=== PATIENT | male | born 1935 | race Caucasian/White ===

== ENCOUNTER 2021-03-21 06:17 | Day surgery (SDC) | payer MEDICARE, OTHER ==
[2021-03-21] MEDS ORDERED: Midazolam 1 MG/ML 2 ML SDV IV ONE ×2 (06:18→07:41)
[2021-03-21] MEDS ORDERED: fentaNYL 100 MCG/2 ML SDV IV ONE ×3 (06:18→07:41)
[2021-03-21] MEDS ORDERED: Dextrose 5%-0.45% NaCl 1,000 ML IV SCH (06:40)
[2021-03-21] MEDS ORDERED: Midazolam 1 MG/ML 2 ML SDV ONE (06:57)
[2021-03-21] MEDS ORDERED: fentaNYL 100 MCG/2 ML SDV ONE (06:57)
--- NOTE | 2021-03-21 10:08 | OR ---
DATE: 03/21/2021 PROCEDURE: Esophagogastroduodenoscopy, NBI, and multiple pinch biopsies. INSTRUMENT USED: [id number]-HQ190 Olympus video panendoscope. PREMEDICATIONS: No oral or topical anesthesia used. Fentanyl 100 mcg intravenous, Versed 1 mg intravenous. Nasal O2 cannula. The procedure was done under pulse oximetry, BP recording, and hot mill tin roller. INDICATION: The patient with long-standing heartburn, and related difficulties, on high-dose PPI. Esophagogastroduodenoscopy is performed for detection of any active erosive lesions, Douglass esophagus and/or malignancy also under consideration, H pylori status to be determined, endoscopic hemostasis therapy if needed. The scope was passed with ease. Adequate visualization of the esophagus was made from proximal to distal areas. No upper esophageal lesions identified. No distal esophageal stricture. No uphill or downhill esophageal varices. No Brook-Coles tear. No evidence of erosive esophagitis by Bulloch criteria. No esophageal polyp or tumor mass identified. Proximally, encroaching pink columnar epithelium was noted at around 38 cm distal to the oral verge, NBI views were obtained. Multiple pinch biopsies, 4 quadrants were taken and sent for any histopathologic evidence of intestinal metaplasia. No proximal gastric varices noted. Gastric fundus examination by retroflexion showed no polypoid lesions. No gastric ulcer, malignant mass, or vascular ectasia identified. Prominent benign-appearing proximal gastric folds were noted. Mild patchy erythema of the gastric antrum was noted. No gastric ulcer, malignant mass, or vascular ectasia identified. Duodenal bulb showed no ulcer. Visualized second part of the duodenum was unremarkable. Multiple pinch biopsies were taken from the gastric antrum and proximal body and sent for PyloriTek test for H pylori and histopathology. No bleeding was noted from any of the visualized areas at the completion of examination. Photographs were taken of the duodenal bulb, gastric antrum, fundus, and distal esophagus. IMPRESSION: Columnar-lined distal esophagus. The patient tolerated the procedure well. [facility] /[id number]
[2021-03-21 10:24] VITALS: BP 136/47; PULSE 71
== END 2021-03-21 10:00 | disposition home or self-care (01) ==
LOC: DL.ENDO 06:17
PROVIDERS: ATTEND Internal Medicine Gastroenterology
DX: K20.90 Esophagitis, unspecified without bleeding (principal); K22.8 Other specified diseases of esophagus; I10 Essential (primary) hypertension; E78.5 Hyperlipidemia, unspecified; E66.09 Other obesity due to excess calories; Z88.0 Allergy status to penicillin; Z85.038 Personal history of other malignant neoplasm of large intestine
CPT/HCPCS: 43239; 87077; J2250; J3010; J7042

== ENCOUNTER 2022-08-08 07:20 | Day surgery (SDC) | payer MEDICARE, OTHER ==
[~2022-08-08 07:20] MED LIST: Apraclonidine 0.5% Ophth Soln 5 ML Bot EYELF ONE; Balanced Salt Solution Ophth Irrig 500 ML Bottle IOCULAR ONE; Chondroitin Sulfate/Hyaluronate Sodium Ophth Inj 0.75 ML Syringe EYELF ONE; Dexamethasone/Neomycin/Polymyxin B Ophth Oint 3.5 GM Tube EYELF ONE; Diclofenac Sodium 0.1% Ophth Soln 5 ML Bottle EYELF ONE; Lidocaine 1% 30 ML SDV ONE; Povidone-Iodine 5% Sterile Ophth Soln 30 ML Bottle EYELF ONE; Proparacaine 0.5% Ophth Soln 15 ML Bottle EYELF ONE; Vancomycin 500 MG SDV EYELF ONE
[2022-08-08] MEDS ORDERED: Midazolam 1 MG/ML 2 ML SDV IV ONE (07:21)
[2022-08-08] MEDS ORDERED: Dexamethasone 4 MG/ML SDV IV ONE (07:21)
[2022-08-08] MEDS ORDERED: Sodium Chloride 0.9% 10 ML Syringe IV ONE (07:21)
[2022-08-08] MEDS ORDERED: Acetaminophen/Codeine 300-30 MG Tab PO PRN (07:30)
[2022-08-08] MEDS ORDERED: Tropicamide 1% Ophth Soln 15 ML Bottle EYELF ONE (07:30)
[2022-08-08] MEDS ORDERED: Proparacaine 0.5% Ophth Soln 15 ML Bottle EYELF ONE ×2 (07:30→08:40)
[2022-08-08] MEDS ORDERED: Povidone-Iodine 5% Sterile Ophth Soln 30 ML Bottle EYELF ONE ×2 (07:30→08:41)
[2022-08-08] MEDS ORDERED: Acetaminophen 325 MG Tab PO PRN (07:30)
[2022-08-08] MEDS ORDERED: Sodium Chloride 0.9% 10 ML Syringe FLUSH PRN (07:30)
[2022-08-08] MEDS ORDERED: Timolol Maleate 0.5% Ophth Soln 5 ML Bottle EYELF ONE (07:30)
[2022-08-08] MEDS ORDERED: Cataract Ophth Solution EYELF ONE (07:30)
[2022-08-08] MEDS ORDERED: Phenylephrine 10% Ophth Soln 5 ML Bot EYELF PRN (07:30)
[2022-08-08] MEDS ORDERED: Ondansetron 4 MG/2 ML SDV IVPUSH PRN (07:30)
[2022-08-08] MEDS ORDERED: Moxifloxacin 0.5% Ophth Soln 3 ML Bottle EYELF ONE (07:30)
[2022-08-08] MEDS ORDERED: Balanced Salt Solution Ophth Irrig 500 ML Bottle IOCULAR ONE (08:41)
[2022-08-08] MEDS ORDERED: Vancomycin 500 MG SDV EYELF ONE (08:41)
[2022-08-08] MEDS ORDERED: Lidocaine 1% 30 ML SDV ONE (08:41)
[2022-08-08] MEDS ORDERED: Dexamethasone/Neomycin/Polymyxin B Ophth Oint 3.5 GM Tube EYELF ONE (08:41)
[2022-08-08] MEDS ORDERED: Diclofenac Sodium 0.1% Ophth Soln 5 ML Bottle EYELF ONE (08:41)
[2022-08-08] MEDS ORDERED: Chondroitin Sulfate/Hyaluronate Sodium Ophth Inj 0.75 ML Syringe EYELF ONE (08:41)
[2022-08-08] MEDS ORDERED: Apraclonidine 0.5% Ophth Soln 5 ML Bot EYELF ONE (08:41)
[2022-08-08] MEDS ORDERED: Dexamethasone 4 MG/ML SDV IOCULAR ONE (08:47)
[2022-08-08 09:50] VITALS: BP 125/61; PULSE 70
== END 2022-08-08 09:48 | disposition home or self-care (01) ==
LOC: DL.SDS 07:20
PROVIDERS: ATTEND Ophthalmology
DX: H25.812 Combined forms of age-related cataract, left eye (principal); I10 Essential (primary) hypertension; E78.5 Hyperlipidemia, unspecified; C61 Malignant neoplasm of prostate; F17.210 Nicotine dependence, cigarettes, uncomplicated; E66.9 Obesity, unspecified; Z88.0 Allergy status to penicillin; Z98.890 Other specified postprocedural states; Z79.899 Other long term (current) drug therapy; Z68.33 Body mass index [BMI] 33.0-33.9, adult
CPT/HCPCS: A9270-GY; J1100; J2250; J3370; J3490

== ENCOUNTER → 2022-09-05 | Day surgery (SDC) | payer MEDICARE, OTHER ==
[~2022-09-05] MED LIST changes: +Acetaminophen 325 MG Tab PO PRN; +Acetaminophen/Codeine 300-30 MG Tab PO PRN; -Apraclonidine 0.5% Ophth Soln 5 ML Bot EYELF ONE; +Apraclonidine 0.5% Ophth Soln 5 ML Bot EYERT ONE; +Cataract Ophth Solution EYERT ONE; -Chondroitin Sulfate/Hyaluronate Sodium Ophth Inj 0.75 ML Syringe EYELF ONE; +Chondroitin Sulfate/Hyaluronate Sodium Ophth Inj 0.75 ML Syringe EYERT ONE; +Dexamethasone 4 MG/ML SDV IV ONE; -Dexamethasone/Neomycin/Polymyxin B Ophth Oint 3.5 GM Tube EYELF ONE; +Dexamethasone/Neomycin/Polymyxin B Ophth Oint 3.5 GM Tube EYERT ONE; -Diclofenac Sodium 0.1% Ophth Soln 5 ML Bottle EYELF ONE; +Diclofenac Sodium 0.1% Ophth Soln 5 ML Bottle EYERT ONE; +Midazolam 1 MG/ML 2 ML SDV IV ONE; +Moxifloxacin 0.5% Ophth Soln 3 ML Bottle EYERT ONE; +Ondansetron 4 MG/2 ML SDV IVPUSH PRN; +Phenylephrine 10% Ophth Soln 5 ML Bot EYERT PRN; -Povidone-Iodine 5% Sterile Ophth Soln 30 ML Bottle EYELF ONE; +Povidone-Iodine 5% Sterile Ophth Soln 30 ML Bottle EYERT ONE; -Proparacaine 0.5% Ophth Soln 15 ML Bottle EYELF ONE; +Proparacaine 0.5% Ophth Soln 15 ML Bottle EYERT ONE; +Sodium Chloride 0.9% 10 ML Syringe FLUSH PRN; +Sodium Chloride 0.9% 10 ML Syringe IV ONE; +Timolol Maleate 0.5% Ophth Soln 5 ML Bottle EYERT ONE; +Tropicamide 1% Ophth Soln 15 ML Bottle EYERT ONE; -Vancomycin 500 MG SDV EYELF ONE; +Vancomycin 500 MG SDV EYERT ONE
[2022-09-05 12:57] VITALS: BP 126/63; PULSE 84
== END | disposition home or self-care (01) ==
LOC: DL.SDS 10:12
PROVIDERS: ATTEND Ophthalmology
DX: H25.811 Combined forms of age-related cataract, right eye (principal); I10 Essential (primary) hypertension; E78.5 Hyperlipidemia, unspecified; C61 Malignant neoplasm of prostate; M19.90 Unspecified osteoarthritis, unspecified site; E66.9 Obesity, unspecified; Z98.890 Other specified postprocedural states; Z87.891 Personal history of nicotine dependence; Z79.899 Other long term (current) drug therapy; Z88.0 Allergy status to penicillin; Z68.33 Body mass index [BMI] 33.0-33.9, adult
CPT/HCPCS: 00142; A9270-GY; J1100; J2250; J3370; J3490; V2632

== ENCOUNTER 2022-11-30 16:21 | Observation (INO) | payer MEDICARE, OTHER ==
[2022-11-30] MEDS ORDERED: Sodium Chloride 0.9% 10 ML Syringe FLUSH PRN (16:23)
[2022-11-30 16:57] LABS: BASOPHILS PERCENT AUTO 0.5 % (0.0-1.0); EOSINOPHILS PERCENT AUTO 0.7 % (1.0-3.0); HEMATOCRIT 41.6 % (40.0-54.0); HEMOGLOBIN 14.2 g/dL (14.0-18.0); LYMPHOCYTES PERCENT AUTO 41.6 % (20.5-50.1); MEAN CORPUSCULAR HEMOGLOBIN 32.5 pg (27.0-34.0); MEAN CORPUSCULAR HGB CONC 34.1 g/dL (33.0-35.0); MEAN CORPUSCULAR VOLUME 95.2 fL (80-100); NEUTROPHILS PERCENT AUTO 49.2 % (42.2-75.2); PLATELET COUNT,PLT 163 10^3/uL (150-450); RED BLOOD CELL COUNT 4.37 10^6/uL (4.6-6.2); WHITE BLOOD CELL COUNT,WBC 6.1 10^3/uL (5.0-10.0)
[2022-11-30] MEDS ORDERED: Sodium Chloride 0.9% 1,000 ML IV ONE (17:09)
[2022-11-30 17:18] LABS: A/G RATIO 1.2; ALANINE AMINOTRANSFERASE,ALT 25 U/L (16-63); ALBUMIN 3.4 g/dL (3.4-5.0); ALKALINE PHOSPHATASE 58 U/L (46-116); ASPARTATE AMNIOTRANSFERASE,AST 18 U/L (15-37); BILIRUBIN TOTAL 0.5 mg/dL (0.2-1.0); BLOOD UREA NITROGEN,BUN 19 mg/dL (7-18); BUN/CREATININE RATIO 14.4 (No establ ref range); C-REACTIVE PROTEIN 0.3 mg/dL (0.0-0.9); CALCIUM 8.5 mg/dL (8.5-10.1); CARBON DIOXIDE,CO2 27 mmol/L (21-32); CHLORIDE,CL 105 mmol/L (98-107); CREATININE 1.32 mg/dL (0.70-1.30); ESTIMATED GFR 53 mL/min (>=60); GLUCOSE RANDOM 106 mg/dL (70-99); PROTEIN TOTAL,TP 6.3 g/dL (6.4-8.2); SODIUM,NA 141 mmol/L (136-145)
[2022-11-30 17:22] LABS: LACTIC ACID 0.7 mmol/L (0.4-2.0)
[2022-11-30] MEDS ORDERED: Magnesium Sulfate/Water 2 GM in Premix Bag 1 BAG IV ONE ×4 (17:22)
[2022-11-30] MEDS ORDERED: Albuterol/Ipratropium 3.0-0.5 MG/3 ML Neb Soln NEB PRN (20:11)
[2022-11-30] MEDS ORDERED: Temazepam 15 MG Cap PO PRN (20:11)
[2022-11-30] MEDS ORDERED: Acetaminophen 325 MG Tab PO PRN (20:11)
[2022-11-30] MEDS ORDERED: Acetaminophen/HYDROcodone 325-5 MG Tab PO PRN (20:11)
[2022-11-30] MEDS ORDERED: Ondansetron 4 MG/2 ML SDV IVPUSH PRN (20:11)
[2022-11-30] MEDS ORDERED: HYDROmorphone 0.5 MG/0.5 ML Syringe IVPUSH PRN (20:11)
[2022-11-30] MEDS ORDERED: Zolpidem 5 MG Tab PO PRN (20:16)
[2022-11-30] MEDS: Famotidine 20 MG Tab PO SCH (20:41)
[2022-11-30 20:50] LABS: APPEARANCE,URINE CLEAR (CLEAR); BILIRUBIN,URINE NEGATIVE (NEGATIVE); COLOR,URINE YELLOW (YELLOW); GLUCOSE,URINE NEGATIVE (NEGATIVE); KETONES,URINE NEGATIVE (NEGATIVE); LEUKOCYTE ESTERASE,URINE NEGATIVE (NEGATIVE); NITRITE,URINE NEGATIVE (NEGATIVE); OCCULT BLOOD,URINE NEGATIVE (NEGATIVE); PH,URINE 5.5 (5.0-9.0); PROTEIN,URINE NEGATIVE (NEGATIVE); UROBILINOGEN,URINE 0.2 mg/dL (0.2-1.0)
[2022-11-30 21:10] LABS: AMORPHOUS SEDIMENT,URINE FEW /HPF (NOT SEEN); BACTERIA,URINE FEW /HPF (0-FEW/HPF); EPITHELIAL CELLS,URINE FEW /HPF (NOT SEEN); MUCUS,URINE FEW /LPF (NOT SEEN); RBC,URINE 0-5 /HPF (0-5); WBC,URINE 0-5 /HPF (0-5/HPF)
[2022-12-01 06:26] LABS: BASOPHILS PERCENT AUTO 0.4 % (0.0-1.0); HEMATOCRIT 41.1 % (40.0-54.0); HEMOGLOBIN 13.7 g/dL (14.0-18.0); LYMPHOCYTES PERCENT AUTO 38.8 % (20.5-50.1); MEAN CORPUSCULAR HGB CONC 33.3 g/dL (33.0-35.0); MONOCYTES PERCENT AUTO 8.4 % (2-8); NEUTROPHILS PERCENT AUTO 51.4 % (42.2-75.2); PLATELET COUNT,PLT 144 10^3/uL (150-450); RED BLOOD CELL COUNT 4.28 10^6/uL (4.6-6.2); WHITE BLOOD CELL COUNT,WBC 4.9 10^3/uL (5.0-10.0)
[2022-12-01 06:46] LABS: ALBUMIN 3.1 g/dL (3.4-5.0); ANION GAP 9.3 mEq/L (7-13); BILIRUBIN TOTAL 0.4 mg/dL (0.2-1.0); CALCIUM 8.2 mg/dL (8.5-10.1); CREATININE 1.25 mg/dL (0.70-1.30); EST CRCL DRUG DOSING (CG) 38.99 mL/min; MAGNESIUM 2.1 mg/dL (1.8-2.4); POTASSIUM,K 4.3 mmol/L (3.5-5.1); PROTEIN TOTAL,TP 5.9 g/dL (6.4-8.2)
[2022-12-01 06:50] LABS: A/G RATIO 1.11
[2022-12-01] MEDS ORDERED: Aspirin 81 MG Tab.Chew PO SCH (08:00)
[2022-12-01] MEDS: Famotidine 20 MG Tab PO SCH (08:14)
[2022-12-01 10:21] VITALS: BP 135/60; PULSE 71
== END 2022-12-01 10:41 | disposition home or self-care (01) ==
LOC: DL.ED 16:21 → DL.MS 18:30
PROVIDERS: ADMIT Internal Medicine; ATTEND Internal Medicine
DX: G45.9 Transient cerebral ischemic attack, unspecified (principal); E83.42 Hypomagnesemia; I12.9 Hypertensive chronic kidney disease with stage 1 through stage 4 chronic kidney disease, or unspecified chronic kidney disease; N18.9 Chronic kidney disease, unspecified; E78.00 Pure hypercholesterolemia, unspecified; K21.9 Gastro-esophageal reflux disease without esophagitis; M19.90 Unspecified osteoarthritis, unspecified site; C61 Malignant neoplasm of prostate; J01.00 Acute maxillary sinusitis, unspecified; E66.9 Obesity, unspecified; Z68.32 Body mass index [BMI] 32.0-32.9, adult; Z79.899 Other long term (current) drug therapy; Z79.82 Long term (current) use of aspirin; Z88.0 Allergy status to penicillin; Z98.890 Other specified postprocedural states
CPT/HCPCS: 36415; 70450; 80053; 80061; 81001; 83605; 83735; 84484; 85025; 86140; 93005; 93010; 96361; 96365; 96366; 99223; 99238; 99284; 99285-25; A9270-GY; G0378; J3475; J3490; J7030

== ENCOUNTER 2023-09-20 06:12 | Day surgery (SDC) | payer MEDICARE, OTHER ==
[2023-09-20] MEDS ORDERED: fentaNYL 100 MCG/2 ML SDV IV ONE (06:13)
[2023-09-20] MEDS ORDERED: Midazolam 1 MG/ML 2 ML SDV IV ONE (06:13)
[2023-09-20] MEDS: Dextrose 5%-0.45% NaCl 1,000 ML IV SCH (06:50)
[2023-09-20] MEDS ORDERED: fentaNYL 100 MCG/2 ML SDV ONE (07:15)
[2023-09-20] MEDS ORDERED: Midazolam 1 MG/ML 2 ML SDV ONE (07:15)
[2023-09-20] MEDS: fentaNYL 100 MCG/2 ML SDV IV ONE ×3 (07:23→07:31)
[2023-09-20] MEDS: Midazolam 1 MG/ML 2 ML SDV IV ONE (07:25)
[2023-09-20 09:41] VITALS: BP 113/62; PULSE 88
== END 2023-09-20 09:15 | disposition home or self-care (01) ==
LOC: DL.ENDO 06:12
PROVIDERS: ATTEND Internal Medicine Gastroenterology
DX: K25.9 Gastric ulcer, unspecified as acute or chronic, without hemorrhage or perforation (principal); I10 Essential (primary) hypertension; E78.5 Hyperlipidemia, unspecified; K52.9 Noninfective gastroenteritis and colitis, unspecified
CPT/HCPCS: 88305; J2250; J3010; J7042

== ENCOUNTER 2025-05-24 07:14 | Day surgery (SDC) | payer MEDICARE, OTHER ==
[2025-05-24] MEDS ORDERED: Ketamine 500 mg/10 ML MDV IV ONE (07:15)
[2025-05-24] MEDS ORDERED: Propofol 200 MG/20 ML SDV IV ONE (07:15)
[2025-05-24] MEDS ORDERED: Lactated Ringers 1,000 ML IV ONE (07:15)
[2025-05-24] MEDS: Lactated Ringers 1,000 ML IV SCH (07:38)
[2025-05-24] MEDS ORDERED: Ketamine 500 mg/10 ML MDV ONE (07:56)
[2025-05-24] MEDS ORDERED: Propofol 200 MG/20 ML SDV ONE (07:56)
[2025-05-24 09:20] VITALS: BP 125/88; PULSE 100
== END 2025-05-24 09:35 | disposition home or self-care (01) ==
LOC: DL.ENDO 07:14
PROVIDERS: ATTEND Internal Medicine Gastroenterology
DX: K31.7 Polyp of stomach and duodenum (principal); K31.89 Other diseases of stomach and duodenum; I10 Essential (primary) hypertension; E78.5 Hyperlipidemia, unspecified; E03.9 Hypothyroidism, unspecified; E66.9 Obesity, unspecified; Z68.31 Body mass index [BMI] 31.0-31.9, adult; Z88.0 Allergy status to penicillin; Z79.899 Other long term (current) drug therapy
CPT/HCPCS: 43239; 88305; J2704; J3490; J7120; S5010

== ENCOUNTER 2025-05-26 05:40 | Emergency (ER) | payer MEDICARE, OTHER ==
[2025-05-26] MEDS: Iopamidol 612 MG/ML 100 ML Bottle IVPUSH ONE (05:54)
[2025-05-26 06:02] LABS: PLATELET COUNT,PLT 240 10^3/uL (150-450); RED BLOOD CELL COUNT 4.88 10^6/uL (4.6-6.2); WHITE BLOOD CELL COUNT,WBC 8.9 10^3/uL (5.0-10.0)
[2025-05-26 06:16] LABS: BASOPHILS PERCENT AUTO 1.1 % (0.0-1.0); EOSINOPHILS PERCENT AUTO 0.9 % (1.0-3.0); LYMPHOCYTES PERCENT AUTO 38.5 % (20.5-50.1); MONOCYTES PERCENT AUTO 6.7 % (2-8); NEUTROPHILS PERCENT AUTO 52.8 % (42.2-75.2)
[2025-05-26] MEDS: Ondansetron 4 MG/2 ML SDV IVPUSH ONE (06:17)
[2025-05-26 06:28] LABS: ALANINE AMINOTRANSFERASE,ALT 18 U/L (16-63); ASPARTATE AMNIOTRANSFERASE,AST 18 U/L (15-37); BILIRUBIN TOTAL 0.3 mg/dL (0.2-1.0); BLOOD UREA NITROGEN,BUN 20 mg/dL (7-18); CARBON DIOXIDE,CO2 29 mmol/L (21-32); CHLORIDE,CL 103 mmol/L (98-107); CREATININE 1.16 mg/dL (0.70-1.30); GLUCOSE RANDOM 118 mg/dL (70-99); LACTIC ACID 1.1 mmol/L (0.4-2.0); POTASSIUM,K 4.1 mmol/L (3.5-5.1); PROTEIN TOTAL,TP 7.9 g/dL (6.4-8.2); SODIUM,NA 143 mmol/L (136-145)
[2025-05-26 06:32] LABS: A/G RATIO 0.72; ESTIMATED GFR 61 mL/min (>=60)
[2025-05-26] MEDS: Iopamidol 755 Mg/ML 100 ML Bottle IVPUSH ONE (06:33)
[2025-05-26 06:59] LABS: LYMPHOCYTES PERCENT MAN 36 % (20-50); SEG NEUTROPHILS PERCENT MAN 58 % (42-75)
[2025-05-26 07:00] LABS: MONOCYTES PERCENT MAN 6 % (2-8)
[2025-05-26] MEDS: Ketorolac 30 MG/ML SDV IVPUSH ONE ×2 (07:00→07:38)
[2025-05-26 11:14] VITALS: BP 101/58; PULSE 93
== END 2025-05-26 10:35 | disposition home or self-care (01) ==
LOC: DL.ED 05:40
DX: M62.838 Other muscle spasm (principal); E86.0 Dehydration; I10 Essential (primary) hypertension; E78.00 Pure hypercholesterolemia, unspecified; Z88.0 Allergy status to penicillin; Z79.890 Hormone replacement therapy; Z79.899 Other long term (current) drug therapy
CPT/HCPCS: 36415; 70450; 70491; 71046; 80053; 83605; 83735; 84145; 84484; 85025; 85651; 86140; 93005; 94762; 96361; 96372; 96374; 96375; 99284; A9270; J2270; J2405; J7030; Q9967; 93010; J1885